=== PATIENT | female | born 1960 | race Caucasian/White ===

== ENCOUNTER → 2016-11-06 | Outpatient (CLI) | payer BC ==
[~2016-11-06] VITALS: Ht 162.6 cm; Wt 55.8 kg
[~2016-11-06] MED LIST: ALPH1CAP PO; COQ1400C2 PO; IRON65TA PO; LIDOCAINE 2% INJ 100 MG/5 ML SDV (FOR ANES.) As Ordered ONE; LUTE20CA PO; MULT1TAB10 PO; OMEG12003 PO; PROPOFOL 200 MG/20 ML VIAL As Ordered ONE; VALT1TAB PO; VITA100037 PO; VITA10005 PO; VITA500T53 PO; VITACAP35 PO; VITACRE10 EX
--- NOTE | 2016-11-06 11:22 | ROOR ---
Patient Name: Billie Erazo Procedure Date: 11/06/2016 11:10 AM Date of : 1960 Age: 56 Room: M OPP Gender: Female Note Status: Finalized Procedure: Upper GI endoscopy Indications: Heartburn, Follow-up of Simon's esophagus Providers: Devang BASSETT MD Referring MD: Brianna Robertson NP Requesting Provider: Medicines: Monitored Anesthesia Care Complications: No immediate complications. Procedure: Pre-Anesthesia Assessment: - The heart rate, respiratory rate, oxygen saturations, blood pressure, adequacy of pulmonary ventilation, and response to care were monitored throughout the procedure. The Endoscope was introduced through the mouth, and advanced to the second part of duodenum. The upper GI endoscopy was accomplished without difficulty. The patient tolerated the procedure well. Findings: The Z-line was variable and was found 36 cm from the incisors. This was biopsied with a cold forceps for histology. Very small (insignificant) Hiatal Hernia. The exam was otherwise without abnormality. Impression: - Z-line variable, 36 cm from the incisors. Biopsied. - Very small (insignificant) Hiatal Hernia. - The examination was otherwise normal. Recommendation: - Telephone endoscopist for pathology results in 2 weeks. - Continue present medications. Devang Bassett MD Devang BASSETT MD 11/06/2016 11:22:12 AM This report has been signed electronically. Number of Addenda: 0 Note Initiated On: 11/06/2016 11:10 AM Estimated Blood Loss: Estimated blood loss: none.
[2016-11-06 11:45] VITALS: BP 123/65
== END ==
LOC: M OPP 10:08
PROVIDERS: ATTEND Internal Medicine Gastroenterology
DX: K22.70 Barrett's esophagus without dysplasia (principal); K22.8 Other specified diseases of esophagus; K44.9 Diaphragmatic hernia without obstruction or gangrene; R12 Heartburn; Z80.3 Family history of malignant neoplasm of breast

== ENCOUNTER → 2017-03-27 | Outpatient (REF) | payer BC ==
[~2017-03-27] MED LIST changes: -LIDOCAINE 2% INJ 100 MG/5 ML SDV (FOR ANES.) As Ordered ONE; -PROPOFOL 200 MG/20 ML VIAL As Ordered ONE
== END ==
LOC: M SFHCWAGY 09:56
PROVIDERS: ATTEND Nurse Practitioner Family
DX: Z12.4 Encounter for screening for malignant neoplasm of cervix (principal); N95.2 Postmenopausal atrophic vaginitis

== ENCOUNTER → 2017-06-08 | Outpatient (REF) | payer BC ==
[~2017-06-08] MED LIST changes: -ALPH1CAP PO; +ALPH200C2 PO; -VITA100037 PO; +VITA100067 PO
[2017-06-08 11:46] LABS: BASO % 0.9 % (0.0-1.0); EOS # 0.1 K/mm3 (0.0-0.50); LARGE UNSTAINED CELL # 0.1 K/mm3 (0.0-0.4); LARGE UNSTAINED CELL % 1.8 % (0.0-4.0); LYMPH # 1.1 K/mm3 (1.5-4.5); LYMPH % 29.4 % (24.0-44.0); MEAN CORPUSCULAR HEMOGLOBIN 28.3 pg (27.0-33.0); MEAN CORPUSCULAR HGB CONC 31.8 g/dl (32.0-36.5); MEAN CORPUSCULAR VOLUME 89.1 fl (80.0-96.0); MONO # 0.3 K/mm3 (0.0-0.8); NEUTROPHILS % 56.9 % (36.0-66.0); PLATELET COUNT, AUTOMATED 169 k/mm3 (150-450); RED CELL DISTRIBUTION WIDTH 13.5 % (11.5-14.5); WHITE BLOOD COUNT 3.6 K/mm3 (4.0-10.0)
[2017-06-08 12:10] LABS: ALBUMIN 3.8 GM/DL (3.2-5.2); ALBUMIN/GLOBULIN RATIO 1.41 (1.00-1.93); ALKALINE PHOSPHATASE 60 U/L (45-117); ALT/SGPT 22 U/L (12-78); ANION GAP 8 MEQ/L (8-16); AST/SGOT 19 U/L (15-37); BILIRUBIN,TOTAL 0.7 MG/DL (0.2-1.0); BLOOD UREA NITROGEN 13 MG/DL (7-18); CALCIUM LEVEL 8.9 MG/DL (8.5-10.1); CARBON DIOXIDE LEVEL 29 MEQ/L (21-32); CHLORIDE LEVEL 108 MEQ/L (98-107); CHOLESTEROL LEVEL 201 MG/DL (<200); CREATININE FOR GFR 0.81 MG/DL (0.55-1.02); GLOMERULAR FILTRATION RATE > 60.0 (>51); GLUCOSE, FASTING 98 MG/DL (70-105); POTASSIUM SERUM 4.4 MEQ/L (3.5-5.1); SODIUM LEVEL 145 MEQ/L (136-145); TOTAL PROTEIN 6.5 GM/DL (6.4-8.2); TRIGLYCERIDES LEVEL 60 MG/DL (<150)
[2017-06-08 12:12] LABS: FOLATE > 24.0 NG/ML; VITAMIN B12 LEVEL 1142 PG/ML
== END ==
LOC: M SFHCPLAZ 07:50
PROVIDERS: ATTEND Nurse Practitioner Family
DX: I73.00 Raynaud's syndrome without gangrene (principal); Z83.3 Family history of diabetes mellitus; Z13.220 Encounter for screening for lipoid disorders

== ENCOUNTER → 2017-06-29 | Outpatient (CLI) | payer BC ==
--- NOTE | 2017-06-29 12:05 | REP ---
Clinical: Postmenopausal bleeding . Technique: Transabdominal pelvic ultrasound followed by transvaginal examination for better evaluation of the endometrium and adnexa. Findings: Bladder is unremarkable and measures 10.2 x 7.2 x 8.9 cm . Normal heterogeneous anteverted uterus measures 8.0 x 3.0 x 4.2 cm. The endometrial complex measures 2.2 mm thickness. No discrete uterine or endometrial abnormalities are appreciated. The right ovary is not visualized. Left ovary measures 3.5 x 2.5 x 3.1 cm and is dominated by a 2.8 x 2.0 x 2.7 cm complex cyst. 7 mm echogenic focus adjacent to the left ovary is nonspecific but may represent chronic calcification. Impression: 1. Normal appearance to the uterus with normal endometrial complex. 2. Right ovary not visualized. 3. 2.8 cm septated cyst in the left ovary. 7 mm echogenic focus adjacent to the left ovary is nonspecific possibly chronic calcification. Consider reevaluation in 6 weeks to evaluate for resolution.
== END ==
LOC: M WHC 10:30
PROVIDERS: ATTEND Nurse Practitioner Family
DX: N83.202 Unspecified ovarian cyst, left side (principal)

== ENCOUNTER → 2017-08-14 | Outpatient (REF) | payer BC ==
[2017-08-14 13:13] LABS: FREE T4 0.84 NG/DL (0.76-1.46)
== END ==
LOC: M SFHCPLAZ 10:16
PROVIDERS: ATTEND Nurse Practitioner Family
DX: L65.9 Nonscarring hair loss, unspecified (principal)

== ENCOUNTER → 2017-09-11 | Outpatient (CLI) | payer BC ==
[2017-09-11 10:49] LABS: BASO % 0.6 % (0.0-1.0); EOS # 0.1 10^3/uL (0.0-0.50); EOS % 1.2 % (0.0-3.0); IMMATURE GRANULOCYTE % 0.2 % (0-0); LYMPH # 1.4 10^3/uL (1.5-4.5); LYMPH % 28.2 % (24.0-44.0); MEAN CORPUSCULAR HEMOGLOBIN 27.3 pg (27.0-33.0); MEAN CORPUSCULAR HGB CONC 31.6 g/dl (32.0-36.5); MEAN CORPUSCULAR VOLUME 86.4 fl (80.0-96.0); MONO # 0.5 10^3/uL (0.0-0.8); MONO % 10.9 % (0.0-5.0); NEUTROPHILS # 2.9 10^3/uL (1.8-7.7); NEUTROPHILS % 58.9 % (36.0-66.0); PLATELET COUNT, AUTOMATED 204 10^3/uL (150-450)
[2017-09-11 11:21] LABS: ANION GAP 5 MEQ/L (8-16); BLOOD UREA NITROGEN 16 MG/DL (7-18); CARBON DIOXIDE LEVEL 32 MEQ/L (21-32); CHLORIDE LEVEL 106 MEQ/L (98-107); CREATININE FOR GFR 0.86 MG/DL (0.55-1.02); GLOMERULAR FILTRATION RATE > 60.0 (>51); GLUCOSE, FASTING 94 MG/DL (70-105); POTASSIUM SERUM 4.8 MEQ/L (3.5-5.1); SODIUM LEVEL 143 MEQ/L (136-145)
--- NOTE | 2017-09-11 21:54 | ECGEPIP ---
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
== END ==
LOC: M LAB 10:13
PROVIDERS: ATTEND Podiatrist
DX: Z01.818 Encounter for other preprocedural examination (principal); R94.31 Abnormal electrocardiogram [ECG] [EKG]

== ENCOUNTER → 2017-11-20 | Outpatient (REF) | payer BC ==
[2017-11-20 16:17] LABS: ANION GAP 3 MEQ/L (8-16); BLOOD UREA NITROGEN 16 MG/DL (7-18); CALCIUM LEVEL 9.4 MG/DL (8.5-10.1); CARBON DIOXIDE LEVEL 35 MEQ/L (21-32); CHLORIDE LEVEL 105 MEQ/L (98-107); CREATININE FOR GFR 0.85 MG/DL (0.55-1.30); GLOMERULAR FILTRATION RATE > 60.0 (>51); GLUCOSE, FASTING 85 MG/DL (70-100); POTASSIUM SERUM 4.2 MEQ/L (3.5-5.1); SODIUM LEVEL 143 MEQ/L (136-145)
[2017-11-20 16:53] LABS: BASO % 0.5 % (0.0-1.0); EOS # 0.1 10^3/uL (0.0-0.50); EOS % 1.9 % (0.0-3.0); HEMATOCRIT 43.1 % (36.0-47.0); HEMOGLOBIN 13.9 g/dl (12.0-16.0); LYMPH # 1.7 10^3/uL (1.5-4.5); LYMPH % 28.5 % (24.0-44.0); MEAN CORPUSCULAR HEMOGLOBIN 28.9 pg (27.0-33.0); MEAN CORPUSCULAR HGB CONC 32.3 g/dl (32.0-36.5); MEAN CORPUSCULAR VOLUME 89.6 fl (80.0-96.0); MONO # 0.6 10^3/uL (0.0-0.8); MONO % 9.3 % (0.0-5.0); NEUTROPHILS # 3.5 10^3/uL (1.8-7.7); NEUTROPHILS % 59.8 % (36.0-66.0); PLATELET COUNT, AUTOMATED 186 10^3/uL (150-450); RED BLOOD COUNT 4.81 10^6/uL (4.00-5.40); RED CELL DISTRIBUTION WIDTH 13.9 % (11.5-14.5); WHITE BLOOD COUNT 5.9 10^3/uL (4.0-10.0)
== END ==
LOC: M LABDRAW1 11:50
DX: Z00.00 Encounter for general adult medical examination without abnormal findings (principal)
CPT/HCPCS: 80048

== ENCOUNTER → 2017-11-30 | Day surgery (SDC) | payer BC ==
[~2017-11-30] MED LIST changes: -ALPH200C2 PO; -COQ1400C2 PO; +HYDROmorphone HCL 1 MG/ML SYRINGE (J1170) IV; -IRON65TA PO; +KETAMINE HCL 200 MG/20 ML VIAL As Ordered; +KETOROLAC 60 MG/2 ML VIAL (J1885) As Ordered; +LIDOCAINE 1% MDV 20ML VIAL SQ; +LIDOCAINE 2% INJ 100 MG/5 ML SDV (FOR ANES.) As Ordered; +LR 1,000 ML IV; -LUTE20CA PO; +METOCLOPRAMIDE INJ 10MG/2ML VIAL (J2765) As Ordered; +MIDAZOLAM INJ 2 MG/2 ML VIAL (J2250) As Ordered; -MULT1TAB10 PO; -OMEG12003 PO; +ONDANSETRON 4MG/2ML VIAL (J2405) As Ordered; +ONDANSETRON 4MG/2ML VIAL (J2405) IV; +PERCOCET 5MG/325MG TAB PO; +PROPOFOL 200 MG/20 ML VIAL As Ordered; -VALT1TAB PO; -VITA10005 PO; -VITA100067 PO; -VITA500T53 PO; -VITACAP35 PO; -VITACRE10 EX; +fentaNYL 100 MCG/2 ML INJECTION (J3010) As Ordered; +fentaNYL 100 MCG/2 ML INJECTION (J3010) IV
[2017-11-30] MEDS: LR 1,000 ML IV (06:55)
[2017-11-30] MEDS: BACITRACIN PWD 50,000 UNITS VIAL As Ordered (07:41)
[2017-11-30] MEDS: LIDOCAINE 2% MDV 20 ML VIAL As Ordered (07:41)
[2017-11-30] MEDS: BUPIVACAINE HCL 0.5% 30 ML VIAL As Ordered (07:41)
[2017-11-30] MEDS: NEOSPORIN GU IRRIG 20 ML VIAL As Ordered (07:41)
[2017-11-30] MEDS: dexameTHASONE 4 MG/ML 1ML VIAL (J1100) As Ordered (08:07)
== END | disposition home or self-care (01) ==
LOC: M SDC 06:17
DX: M20.11 Hallux valgus (acquired), right foot (principal); M21.621 Bunionette of right foot; Q66.89 Other specified congenital deformities of feet; F41.9 Anxiety disorder, unspecified; Z79.899 Other long term (current) drug therapy
CPT/HCPCS: 28296

== ENCOUNTER → 2018-03-19 | Outpatient (CLI) | payer BC | LOC: M WHC 08:58 | DX: N83.202 Unspecified ovarian cyst, left side (principal) | CPT/HCPCS: 76830 ==

== ENCOUNTER → 2018-05-28 | Outpatient (REF) | payer BC ==
[2018-05-28 10:37] LABS: HEMATOCRIT 42.9 % (36.0-47.0); HEMOGLOBIN 14.4 g/dl (12.0-15.5); MEAN CORPUSCULAR HEMOGLOBIN 30.2 pg (27.0-33.0); MEAN CORPUSCULAR HGB CONC 33.6 g/dl (32.0-36.5); MEAN CORPUSCULAR VOLUME 89.9 fl (80.0-96.0); PLATELET COUNT, AUTOMATED 184 10^3/uL (150-450); RED BLOOD COUNT 4.77 10^6/uL (4.00-5.40); RED CELL DISTRIBUTION WIDTH 13.2 % (11.5-14.5); WHITE BLOOD COUNT 4.1 10^3/uL (4.0-10.0)
[2018-05-28 11:15] LABS: ALBUMIN 3.8 GM/DL (3.2-5.2); ALBUMIN/GLOBULIN RATIO 1.27 (1.00-1.93); ALKALINE PHOSPHATASE 61 U/L (45-117); ALT/SGPT 22 U/L (12-78); ANION GAP 6 MEQ/L (8-16); AST/SGOT 18 U/L (7-37); BILIRUBIN,TOTAL 1.3 MG/DL (0.2-1.0); BLOOD UREA NITROGEN 14 MG/DL (7-18); CALCIUM LEVEL 9.2 MG/DL (8.5-10.1); CARBON DIOXIDE LEVEL 32 MEQ/L (21-32); CHLORIDE LEVEL 107 MEQ/L (98-107); CHOLESTEROL LEVEL 209 MG/DL (<200); CHOLESTEROL RISK RATIO 2.824 (<5); CREATININE FOR GFR 0.79 MG/DL (0.55-1.30); GLOMERULAR FILTRATION RATE > 60.0 (>51); GLUCOSE, FASTING 96 MG/DL (70-100); HDL CHOLESTEROL 74 MG/DL (>40); LDL CHOLESTEROL 114.6 MG/DL (<100); NON-HDL-C 135 MG/DL; POTASSIUM SERUM 4.2 MEQ/L (3.5-5.1); SODIUM LEVEL 145 MEQ/L (136-145); TOTAL PROTEIN 6.8 GM/DL (6.4-8.2); TRIGLYCERIDES LEVEL 102 MG/DL (<150)
== END ==
LOC: M SFHCPLAZ 07:38
DX: I73.00 Raynaud's syndrome without gangrene (principal); Z13.220 Encounter for screening for lipoid disorders
CPT/HCPCS: 80053

== ENCOUNTER → 2018-06-11 | Outpatient (REF) | payer BC | LOC: M LAB REF 15:23 | DX: L08.9 Local infection of the skin and subcutaneous tissue, unspecified (principal) ==

== ENCOUNTER → 2018-08-27 | Outpatient (CLI) | payer BC ==
[~2018-08-27] MED LIST changes: -HYDROmorphone HCL 1 MG/ML SYRINGE (J1170) IV; -KETAMINE HCL 200 MG/20 ML VIAL As Ordered; -KETOROLAC 60 MG/2 ML VIAL (J1885) As Ordered; -LIDOCAINE 1% MDV 20ML VIAL SQ; -LIDOCAINE 2% INJ 100 MG/5 ML SDV (FOR ANES.) As Ordered; -LR 1,000 ML IV; -METOCLOPRAMIDE INJ 10MG/2ML VIAL (J2765) As Ordered; -MIDAZOLAM INJ 2 MG/2 ML VIAL (J2250) As Ordered; -ONDANSETRON 4MG/2ML VIAL (J2405) As Ordered; -ONDANSETRON 4MG/2ML VIAL (J2405) IV; -PERCOCET 5MG/325MG TAB PO; +PROHANCE 279.3MG/ML 15ML VIAL (A9576) As Ordered; -PROPOFOL 200 MG/20 ML VIAL As Ordered; -fentaNYL 100 MCG/2 ML INJECTION (J3010) As Ordered; -fentaNYL 100 MCG/2 ML INJECTION (J3010) IV
== END ==
LOC: M RAD 12:24
DX: J34.89 Other specified disorders of nose and nasal sinuses (principal)
CPT/HCPCS: A9576

== ENCOUNTER → 2019-03-20 | Outpatient (CLI) | payer BC ==
[~2019-03-20] MED LIST changes: +ALPH200C2 PO; +BIOT1CAP2 PO; +CALTCHW PO; +COQ1400C2 PO; +ESCI10TA2; +IRON65TA PO; +LUTE20CA PO; +MULT1TAB10 PO; +OMEG12003 PO; -PROHANCE 279.3MG/ML 15ML VIAL (A9576) As Ordered; +VALT1TAB PO; +VITA10005 PO; +VITA100067 PO; +VITA100T77 PO; +VITA500T PO; +VITA500T17 PO; +VITACAP35 PO; +VITACRE10 EX
--- NOTE | 2019-03-20 13:39 | REP ---
Clinical: Ovarian cyst. Pelvic pain . Technique: Transabdominal pelvic ultrasound followed by transvaginal examination for better evaluation of the endometrium and adnexa. Comparison: 03/19/2018 Findings: Bladder is unremarkable and measures 9.8 x 5.9 x 8.6 cm . Normal anteverted uterus measures 7.5 x 2.5 x 3.8 cm . The endometrial complex measures 5.5 mm thickness. No discrete uterine or endometrial abnormalities are appreciated. Right ovary is normal and measures 1.9 x 0.7 x 1.4 cm. Left ovary measures 3.3 x 3.5 x 3.9 cm with 3.3 cm simple cyst. No pelvic fluid or adnexal mass lesion . Impression: 1. Normal uterus and right ovary. 2. Left ovary includes 3.3 cm simple cyst similar to finding on prior examination of 03/08.
== END ==
LOC: M WHC 10:34
PROVIDERS: ATTEND Nurse Practitioner Family
DX: N83.202 Unspecified ovarian cyst, left side (principal)

== ENCOUNTER → 2019-03-28 | Outpatient (REF) | payer BC ==
[2019-04-02 14:09] LABS: HPV HYBRID CAPTURE II Positive (Negative)
== END ==
LOC: M SFHCWAGY 09:40
PROVIDERS: ATTEND Nurse Practitioner Family
DX: Z12.4 Encounter for screening for malignant neoplasm of cervix (principal); N95.2 Postmenopausal atrophic vaginitis
CPT/HCPCS: 87624; G0123

== ENCOUNTER → 2019-04-11 | Outpatient (CLI) | payer BC ==
--- NOTE | 2019-04-11 10:02 | REP ---
LUMBAR SPINE SERIES: FIVE VIEWS. HISTORY: Sciatica. Right-sided low back pain. No comparison imaging. FINDINGS: There is a mild dextroconvex curve in the lower thoracic spine, and minimal levoconvex lumbar curve is seen. Lumbar vertebral body heights are preserved. There is a grade 1, 5 mm retrolisthesis at L2-3. Degenerative disc narrowing is seen at the L2-3, L3-4, and L4-5 disc levels with osteophyte formation. There is mild osteoarthritic facet hypertrophy and sclerosis bilaterally at L4-5 and L5-S1. There is no evidence of spondylolysis. Psoas margins are symmetric. The visualized portions of the sacrum and SI joints are unremarkable. IMPRESSION: Mild scoliotic curvature. Degenerative spondylosis changes L3-4, L4-5, and L2-3. Retrolisthesis 5 mm at L2-3. No acute bony abnormality. Electronically Signed by Jed Espinoza MD 04/11/2019 10:28 A
== END ==
LOC: M WUC 08:46
PROVIDERS: ATTEND Physician Assistant
DX: M54.31 Sciatica, right side (principal); M47.896 Other spondylosis, lumbar region; M25.78 Osteophyte, vertebrae

== ENCOUNTER 2019-04-21 06:41 | Emergency (ER) | payer BC ==
[~2019-04-21] VITALS: Ht 162.6 cm; Wt 58.6 kg
[2019-04-21] MEDS ORDERED: TIZA4TAB4 PO (06:50)
[2019-04-21] MEDS ORDERED: D3400CAP PO (07:29)
[2019-04-21] MEDS ORDERED: VITA100T59 PO (07:32)
[2019-04-21] MEDS ORDERED: VITA500T40 PO (07:38)
[2019-04-21] MEDS ORDERED: MAG100TA PO (07:38)
[2019-04-21] MEDS ORDERED: TIZA4CAP PO (07:38)
[2019-04-21] MEDS ORDERED: CALC-263 PO (07:38)
[2019-04-21] MEDS ORDERED: HAIR1CHW PO (07:38)
[2019-04-21] MEDS ORDERED: VITA50TA43 PO (07:38)
[2019-04-21] MEDS ORDERED: MEDR4PAK PO (09:22)
--- NOTE | 2019-04-21 09:23 | REP ---
MRI LUMBAR SPINE WITHOUT CONTRAST: Multiple sequences obtained in the sagittal and axial planes without the use of intravenous contrast material. There is no compression fracture or malalignment with normal lumbar lordosis. There is slight curvature of the thoracolumbar spine convex to the right with the apex of the curvature at the thoracolumbar junction. There is diffuse loss of water signal disc degeneration with mild disc space narrowing at L4-5. Conus is unremarkable. There is mild diffuse disc bulging at the T11-12 level without spinal stenosis. No significant disc bulging or herniation is seen at L1-2. At L2-3 there is mild diffuse disc bulging. There is also mild diffuse disc bulging at L3-4 and L4-5 with mild hypertrophic degenerative changes at the posterior facets and hypertrophy of the ligamentum flavum. There is no significant spinal stenosis or neural foraminal encroachment. There is minimal diffuse disc bulging at L5-S1 with moderate hypertrophic change at the posterior facets and ligamentum flavum. Again there is no significant spinal stenosis or foraminal encroachment. IMPRESSION: Mild diffuse disc bulging at L2-3, L3-4, and L4-5. Hypertrophic changes at the posterior facets and ligamentum flavum. No significant spinal stenosis or foraminal encroachment. Electronically Signed by Aram Landers MD 04/21/2019 04:21 P
[2019-04-21 09:26] VITALS: BP 137/77
== END 2019-04-21 09:32 | disposition home or self-care (01) ==
LOC: M ED 06:41
DX: M62.81 Muscle weakness (generalized) (principal); M54.31 Sciatica, right side; M51.24 Other intervertebral disc displacement, thoracic region; M51.26 Other intervertebral disc displacement, lumbar region; M51.27 Other intervertebral disc displacement, lumbosacral region; M51.36 Other intervertebral disc degeneration, lumbar region; Z79.899 Other long term (current) drug therapy

== ENCOUNTER → 2019-05-22 | Outpatient (REF) | payer BC ==
[~2019-05-22] MED LIST changes: +CALC-263 PO; +D3400CAP PO; +HAIR1CHW PO; +MAG100TA PO; +MEDR4PAK PO; +TIZA4CAP PO; +TIZA4TAB4 PO; +VITA100T59 PO; +VITA500T40 PO; +VITA50TA43 PO
[2019-05-22 10:47] LABS: HEMATOCRIT 44.1 % (36.0-47.0); HEMOGLOBIN 14.1 g/dl (12.0-15.5); MEAN CORPUSCULAR HEMOGLOBIN 30.1 pg (27.0-33.0); PLATELET COUNT, AUTOMATED 200 10^3/uL (150-450); RED BLOOD COUNT 4.69 10^6/uL (4.00-5.40); WHITE BLOOD COUNT 4.1 10^3/uL (4.0-10.0)
[2019-05-22 10:52] LABS: ALBUMIN 3.7 GM/DL (3.2-5.2); ALT/SGPT 25 U/L (12-78); BILIRUBIN,TOTAL 0.6 MG/DL (0.2-1.0); BLOOD UREA NITROGEN 12 MG/DL (7-18); CARBON DIOXIDE LEVEL 33 MEQ/L (21-32); CHLORIDE LEVEL 105 MEQ/L (98-107); CHOLESTEROL LEVEL 237 MG/DL (<200); CREATININE FOR GFR 0.95 MG/DL (0.55-1.30); GLOMERULAR FILTRATION RATE > 60.0 (>51); GLUCOSE, FASTING 77 MG/DL (70-100); HDL CHOLESTEROL 82 MG/DL (>40); LDL CHOLESTEROL 132 MG/DL (<100); NON-HDL-C 155 MG/DL; POTASSIUM SERUM 3.7 MEQ/L (3.5-5.1); SODIUM LEVEL 143 MEQ/L (136-145); TOTAL PROTEIN 6.7 GM/DL (6.4-8.2); TRIGLYCERIDES LEVEL 116 MG/DL (<150)
[2019-05-22 11:02] LABS: TOTAL 25(OH) VITAMIN D 43.8 NG/ML (30.0-100.0)
== END ==
LOC: M SFHCPLAZ 07:50
PROVIDERS: ATTEND Nurse Practitioner Family
DX: I73.00 Raynaud's syndrome without gangrene (principal); Z83.3 Family history of diabetes mellitus; Z13.220 Encounter for screening for lipoid disorders

== ENCOUNTER → 2019-08-18 | Outpatient (CLI) | payer BC ==
--- NOTE | 2019-08-18 10:06 | REP ---
Clinical: Left ovarian cyst. Technique: Transabdominal pelvic ultrasound followed by transvaginal examination for better evaluation of the endometrium and adnexa. Findings: Bladder is normal and measures 8.6 x 5.7 x 7.2 cm. Normal anteverted uterus measures 7.4 x 2.7 x 4.2 cm. Endometrial complex measures 2.6 mm thickness. Right ovary is normal and measures 1.8 x 1.2 x 1.4 cm. Left ovary measures 4.0 x 3.7 x 3.6 cm and includes 3.3 x 3.2 x 2.8 cm simple cyst essentially unchanged from prior examination. No pelvic fluid or adnexal mass lesion. Impression: Stable left ovarian cyst.
== END ==
LOC: M WHC 08:48
PROVIDERS: ATTEND Nurse Practitioner Family
DX: N83.202 Unspecified ovarian cyst, left side (principal)

== ENCOUNTER → 2019-12-18 | Outpatient (CLI) | payer BC | LOC: M PLALAB 08:38 | PROVIDERS: ATTEND Nurse Practitioner Family | DX: N83.209 Unspecified ovarian cyst, unspecified side (principal); Z80.41 Family history of malignant neoplasm of ovary ==

== ENCOUNTER → 2019-12-22 | Outpatient (CLI) | payer BC ==
[~2019-12-22] MED LIST changes: +CALTTAB6 PO; +VALT500T PO
[2019-12-22 09:49] LABS: BASO % 0.6 % (0.0-1.0); EOS # 0.1 10^3/uL (0.0-0.5); EOS % 2.3 % (0.0-3.0); HEMATOCRIT 39.3 % (36.0-47.0); HEMOGLOBIN 12.2 g/dl (12.0-15.5); LYMPH # 1.1 10^3/uL (1.5-5.0); LYMPH % 22.4 % (24.0-44.0); MEAN CORPUSCULAR HEMOGLOBIN 27.4 pg (27.0-33.0); MEAN CORPUSCULAR VOLUME 88.3 fl (80.0-96.0); MONO # 0.4 10^3/uL (0.0-0.8); MONO % 8.5 % (0.0-5.0); NEUTROPHILS # 3.2 10^3/uL (1.5-8.5); PLATELET COUNT, AUTOMATED 212 10^3/uL (150-450); RED BLOOD COUNT 4.45 10^6/uL (4.00-5.40); WHITE BLOOD COUNT 4.8 10^3/uL (4.0-10.0)
[2019-12-22 10:11] LABS: BLOOD UREA NITROGEN 20 MG/DL (7-18); CALCIUM LEVEL 9.5 MG/DL (8.5-10.1); CARBON DIOXIDE LEVEL 32 MEQ/L (21-32); CHLORIDE LEVEL 109 MEQ/L (98-107); CREATININE FOR GFR 0.82 MG/DL (0.55-1.30); GLOMERULAR FILTRATION RATE > 60.0 (>51); GLUCOSE, FASTING 90 MG/DL (70-100); POTASSIUM SERUM 4.6 MEQ/L (3.5-5.1); SODIUM LEVEL 143 MEQ/L (136-145)
--- NOTE | 2019-12-22 21:33 | ECGEPIP ---
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
== END ==
LOC: M LAB 09:05
PROVIDERS: ATTEND Podiatrist
DX: Z01.818 Encounter for other preprocedural examination (principal); M20.12 Hallux valgus (acquired), left foot; M79.672 Pain in left foot

== ENCOUNTER 2020-01-02 10:12 | Day surgery (SDC) | payer BC ==
[~2020-01-02] VITALS: Ht 162.6 cm; Wt 59.8 kg
[~2020-01-02 10:12] MED LIST changes: +BACITRACIN PWD 50,000 UNITS VIAL As Ordered ONE; +BUPIVACAINE HCL 0.5% 30 ML VIAL As Ordered ONE; +LIDOCAINE 1% MDV 20ML VIAL SQ PRN; +LIDOCAINE 2% MDV 20 ML VIAL As Ordered ONE; +LR 1,000 ML IV ONE; +NEOSPORIN GU IRRIG 20 ML VIAL As Ordered ONE; +ceFAZolin SOD 2 GM in IV 1 EA IV ONE; +dexameTHASONE 4 MG/ML 1ML VIAL (J1100) As Ordered ONE
[2020-01-02] MEDS ORDERED: fentaNYL 100 MCG/2 ML INJECTION (J3010) As Ordered ONE (12:46)
[2020-01-02] MEDS ORDERED: MIDAZOLAM INJ 2 MG/2 ML VIAL (J2250) As Ordered ONE (12:46)
[2020-01-02] MEDS ORDERED: propofoL 200 MG/20 ML VIAL As Ordered ONE (12:46)
--- NOTE | 2020-01-02 14:18 | REP ---
Left foot: Three views. History: Left foot bunionectomy. Portable exam. Findings: Three views were obtained through overlying dressing. The patient status post left first metatarsal bunion repair with a metallic pin in place. Electronically Signed by Jed Espinoza MD 01/02/2020 02:10 P
[2020-01-02 14:20] VITALS: BP 136/77
--- NOTE | 2020-01-05 10:37 | RO ---
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 PROCEDURE: Dean bunionectomy with internal screw fixation left foot SURGEON: Deny Phan DPM NEUROLOGY TECH: None. ANESTHESIA:Local MAC IRRIGATION: Dilute bacitracin, neomycin, and polymyxin B solution. HEMOSTASIS: Ankle pneumatic tourniquet at 200 mmHg for 30 minutes. HARDWARE UTILIZED: Arthrex headless compression screw. DESCRIPTION OF PROCEDURE: On 12/23/2019, this 59-year-old female was taken from her hospital room to the operating room and placed on the operating room table in a supine position. Following the induction of IV sedation and local and regional anesthesia, the left lower extremity was prepped and draped in the usual aseptic manner. Attention was directed to the patient's left foot, where there was noted to be a moderately-severe hallux valgus deformity. At this time, a 6 cm incision was placed dorsally over the first metatarsal phalangeal joint medial to the extensor tendon. The incision was deepened through subcutaneous tissues and all coursing venous tributaries were identified, underscored, clamped, cut, ligated, and electrocoagulated as necessary. A linear capsulotomy was then performed in the same plane as the original skin incision. The capsule and periosteal structures were then dissected free in one continuous layer dorsally, medially, and laterally thus creating a capsule and periosteal type envelope. This brought in to view the hypertrophied medial eminence on the first metatarsal, which was osteotomized from distal to proximal through and through exiting medial to the sesamoidal groove. Attention was then directed into the first intermetatarsal space where the conjoined tendon was sharply dissected free from the fibular sesamoid. Attention was directed to the medial surface of the first metatarsal where a V-shaped osteotomy was performed in the distal metaphysis of the first metatarsal with a long plantar and short dorsal wing. Upon creation of this osteotomy the capital fragment was transposed approximately 40% of the width of the shaft of the first metatarsal and fixated with a 3.0 x 24 mm headless compression screw. The screw did not penetrate the inferior cartilage under direct visualization. The redundant cortical spike was then osteotomized from dorsal to plantar through and through and extirpated from the wound in toto. The medial surface was rasped to a smooth contour. The wound was flushed with copious amounts of dilute bacitracin, neomycin, and polymyxin B solution. Attention was then directed towards closure, where capsular structures were coapted and maintained utilizing #2-0 Monocryl in a simple interrupted type fashion. Subcutaneous tissues were coapted and maintained utilizing #4-0 Monocryl in a simple interrupted type fashion. The skin incision was coapted and maintained utilizing #6-0 Monocryl in a continuous subcuticular type fashion and this was additionally reinforced with Steri-Strips. Following the completion of the surgical procedure, 4 mg of dexamethasone sodium phosphate was instilled proximal to the surgical site. Attention was directed towards bandaging where a sterile compressive bandage was applied consisting of Adaptic, 4 x 4's, 4 x 4 splints, Lorrie, Kerlix, and Coban. The ankle pneumatic tourniquet was rapidly deflated and instantaneous capillary filling time was noted in digits 1-5 of the patients left foot. The patient having apparently tolerated the surgical procedure well was taken from the operating room (OR) to the recovery room with further monitoring by the anesthesia department. Postoperative instructions will be given upon discharge. SHAWNA
== END 2020-01-02 14:35 | disposition home or self-care (01) ==
LOC: M SDC 10:12
PROVIDERS: ATTEND Podiatrist
DX: M20.12 Hallux valgus (acquired), left foot (principal); K21.9 Gastro-esophageal reflux disease without esophagitis; F41.9 Anxiety disorder, unspecified; A60.00 Herpesviral infection of urogenital system, unspecified; Z79.899 Other long term (current) drug therapy
CPT/HCPCS: 28296; 73630; 88300; C1713; J0690; J1100; J2250; J3010

== ENCOUNTER → 2020-03-02 | Outpatient (CLI) | payer BC ==
[~2020-03-02] MED LIST changes: -BACITRACIN PWD 50,000 UNITS VIAL As Ordered ONE; -BUPIVACAINE HCL 0.5% 30 ML VIAL As Ordered ONE; -LIDOCAINE 1% MDV 20ML VIAL SQ PRN; -LIDOCAINE 2% MDV 20 ML VIAL As Ordered ONE; -LR 1,000 ML IV ONE; -NEOSPORIN GU IRRIG 20 ML VIAL As Ordered ONE; +VITA-243 PO; -VITA500T PO; -ceFAZolin SOD 2 GM in IV 1 EA IV ONE; -dexameTHASONE 4 MG/ML 1ML VIAL (J1100) As Ordered ONE
--- NOTE | 2020-03-03 03:43 | REP ---
Clinical: Ovarian cyst . Technique: Transabdominal pelvic ultrasound followed by transvaginal examination for better evaluation of the endometrium and adnexa with color Doppler evaluation of the ovaries. Findings: Bladder is unremarkable and measures 10.6 x 6.3 x 9.0 cm . Normal retroverted uterus measures 7.7 x 2.9 x 4.0 cm . The endometrial complex measures 2 mm thickness. No discrete uterine or endometrial abnormalities are appreciated. Right ovary not identified. 3.6 x 3.2 x 3.4 cm complex cyst in the left adnexa with minimal normal left ovarian tissue noted. No pelvic fluid or adnexal mass lesion . Impression: 1. 3.6 cm complex cyst comprises much of the left ovary. Consider follow-up examination in 4-6 weeks to evaluate for resolution. 2. Right ovary not visualized on current examination.
== END ==
LOC: M WHC 08:49
PROVIDERS: ATTEND Nurse Practitioner Family
DX: N83.209 Unspecified ovarian cyst, unspecified side (principal)

== ENCOUNTER → 2020-03-26 | Outpatient (CLI) | payer BC ==
[~2020-03-26] MED LIST changes: +MULTCAP PO
== END ==
LOC: M LABSMTC 11:37
PROVIDERS: ATTEND Anesthesiology
DX: Z01.818 Encounter for other preprocedural examination (principal); Z11.59 Encounter for screening for other viral diseases
CPT/HCPCS: C9803; U0003

== ENCOUNTER 2020-03-29 10:30 | Day surgery (SDC) | payer BC ==
[~2020-03-29] VITALS: Ht 162.6 cm; Wt 61.0 kg
[~2020-03-29 10:30] MED LIST changes: +NS 1,000 ML IV SCH
[2020-03-29] MEDS ORDERED: fentaNYL 100 MCG/2 ML INJECTION (J3010) As Ordered ONE (11:01)
[2020-03-29] MEDS ORDERED: propofoL 200 MG/20 ML VIAL As Ordered ONE (11:02)
[2020-03-29] MEDS ORDERED: LIDOCAINE 2% 100MG/5ML SDV (FOR ANES.) As Ordered ONE (11:02)
--- NOTE | 2020-03-29 13:14 | ROOR ---
Patient Name: Billie Erazo Procedure Date: 03/29/2020 12:50 PM Date of : 1960 Age: 59 Room: [id number] Gender: Female Note Status: Finalized Procedure: Upper GI endoscopy Indications: Surveillance for malignancy due to personal history of Simon's esophagus Providers: Devang BASSETT MD Referring MD: Brianna Robertson NP Requesting Provider: Medicines: Monitored Anesthesia Care Complications: No immediate complications. Procedure: Pre-Anesthesia Assessment: - The heart rate, respiratory rate, oxygen saturations, blood pressure, adequacy of pulmonary ventilation, and response to care were monitored throughout the procedure. The Endoscope was introduced through the mouth, and advanced to the second part of duodenum. The upper GI endoscopy was accomplished without difficulty. The patient tolerated the procedure well. Findings: The Z-line was variable and was found 36 cm from the incisors. Biopsies were taken with a cold forceps for histology. The exam was otherwise without abnormality. Impression: - Z-line variable, 36 cm from the incisors. Biopsied. - The examination was otherwise normal. Recommendation: - Await pathology results. - Telephone endoscopist for pathology results in 2 weeks. - Repeat upper endoscopy in 3 years for surveillance. Devang Bassett MD Devang BASSETT MD 03/29/2020 1:13:55 PM Electronically signed by Devang BASSETT MD Number of Addenda: 0 Note Initiated On: 03/29/2020 12:50 PM Estimated Blood Loss: Estimated blood loss: none.
[2020-03-29 13:57] VITALS: BP 131/75
== END 2020-03-29 13:59 | disposition home or self-care (01) ==
LOC: M OPP 10:30
PROVIDERS: ATTEND Internal Medicine Gastroenterology
DX: K22.70 Barrett's esophagus without dysplasia (principal); K22.8 Other specified diseases of esophagus; Z79.899 Other long term (current) drug therapy
CPT/HCPCS: 43239; 88305; J3010

== ENCOUNTER → 2020-03-29 | Outpatient (REF) | payer BC | LOC: M SFHCWAGY 18:12 | PROVIDERS: ATTEND Nurse Practitioner Family | DX: Z12.4 Encounter for screening for malignant neoplasm of cervix (principal); Z01.419 Encounter for gynecological examination (general) (routine) without abnormal findings ==

== ENCOUNTER → 2020-05-17 | Outpatient (REF) | payer BC ==
[~2020-05-17] MED LIST changes: -NS 1,000 ML IV SCH
[2020-06-21 11:06] LABS: BLOOD UREA NITROGEN 16 MG/DL (7-18); CARBON DIOXIDE LEVEL 31 mmol/L (20-29); CHLORIDE LEVEL 110 MEQ/L (98-107); CREATININE FOR GFR 0.89 MG/DL (0.55-1.30); GLOMERULAR FILTRATION RATE > 60.0 (>51); GLUCOSE, FASTING 87 MG/DL (70-100); POTASSIUM SERUM 4.5 MEQ/L (3.5-5.1); SODIUM LEVEL 146 MEQ/L (136-145)
[2020-06-21 11:07] LABS: ALBUMIN 3.9 GM/DL (3.2-5.2); ALT/SGPT 23 IU/L (0-32); BILIRUBIN,TOTAL 0.9 MG/DL (0.2-1.0); CHOLESTEROL LEVEL 227 MG/DL (<200); CHOLESTEROL RISK RATIO 2.768 (<5); HDL CHOLESTEROL 82 MG/DL (>40); LDL CHOLESTEROL 124.8 MG/DL (<100); NON-HDL-C 145 MG/DL; TOTAL PROTEIN 6.8 GM/DL (6.4-8.2); TRIGLYCERIDES LEVEL 101 MG/DL (<150)
== END ==
LOC: M SFHCWAGY 13:49
PROVIDERS: ATTEND Nurse Practitioner Family
DX: E78.5 Hyperlipidemia, unspecified (principal); E55.9 Vitamin D deficiency, unspecified

== ENCOUNTER → 2020-08-05 | Outpatient (CLI) | payer BC ==
--- NOTE | 2020-08-05 11:24 | REP ---
INDICATION: N83.202 LEFT OVARIAN CYST COMPARISON: Comparison sonography March 02, 2020.. TECHNIQUE: Transabdominal and transvaginal scanning were performed. FINDINGS: Uterine dimensions are normal at 4.7 x 2.8 x 3.5 cm. Endometrial echo is 0.2 cm thick and centrally placed. No free fluid is seen in the cul-de-sac. Visualized bladder patterson are smooth. The right ovary was not visualized due to bowel gas. No right adnexal mass or cyst is seen. The left ovary dimensions are normal as well at 4.1 x 3.9 x 3.2 cm. It's Doppler flow was normal with resistive index of 0.65. Left ovarian cyst is again seen measuring 3.8 x 3.4 x 3.2 cm. Adjacent to this there is complex 1.2 x 0.8 x 0.8 cm cystic area on today's sonography. The larger cystic component appears simple by ultrasound criteria. IMPRESSION: 4.1 cm simple cyst left ovary. Adjacent 1.2 cm complex cyst. Right ovary not directly visualized today. Otherwise negative. <Electronically signed by Gary Espinoza > 08/05/20 [id number]
== END ==
LOC: M WHC 09:53
PROVIDERS: ATTEND Nurse Practitioner Family
DX: N83.202 Unspecified ovarian cyst, left side (principal)

== ENCOUNTER → 2020-09-20 | Outpatient (CLI) | payer BC ==
--- NOTE | 2020-09-20 10:33 | REP ---
INDICATION: N83.292 COMPLEX CYST OF LT OVARY COMPARISON: 08/05/2020 TECHNIQUE: Transabdominal pelvic ultrasound followed by transvaginal examination for better evaluation of the endometrium and adnexa. FINDINGS: Bladder is unremarkable and measures 11.7 x 6.5 x 8.0 cm. Normal retroverted uterus measures 7.5 x 2.4 x 3.8 cm. The endometrial complex measures 2 mm thickness. No discrete uterine or endometrial abnormalities are appreciated. Right ovary is not visualized. Left ovary measures 4.1 x 4.0 x 3.1 cm and includes 3.7 x 3.6 x 3.0 cm simple cyst. No pelvic fluid or adnexal mass lesion. IMPRESSION: 3.7 cm simple left ovarian cyst similar to prior examination. Previously noted complex left ovarian cyst has resolved.. <Electronically signed by Buck Payan > 09/20/20 [id number]
== END ==
LOC: M WHC 09:51
PROVIDERS: ATTEND Nurse Practitioner Family
DX: N83.292 Other ovarian cyst, left side (principal)

== ENCOUNTER → 2020-09-30 | Outpatient (REF) | payer BC | LOC: M WUC 09:49 | PROVIDERS: ATTEND Physician Assistant | DX: J02.9 Acute pharyngitis, unspecified (principal); Z20.828 Contact with and (suspected) exposure to other viral communicable diseases ==

== ENCOUNTER → 2020-12-03 | Outpatient (REF) | payer BC ==
[~2020-12-03] MED LIST changes: +ESCI10TA16; -ESCI10TA2
[2020-12-03 10:37] LABS: EOS # 0.2 10^3/uL (0.0-0.5); EOS % 5.6 % (0.0-3.0); HEMATOCRIT 43.9 % (36.0-47.0); HEMOGLOBIN 14.2 g/dl (12.0-15.5); LYMPH # 1.1 10^3/uL (1.5-5.0); LYMPH % 28.4 % (24.0-44.0); MEAN CORPUSCULAR HEMOGLOBIN 30.3 pg (27.0-33.0); MEAN CORPUSCULAR HGB CONC 32.3 g/dl (32.0-36.5); MEAN CORPUSCULAR VOLUME 93.6 fl (80.0-96.0); MONO # 0.4 10^3/uL (0.0-0.8); MONO % 11.1 % (0.0-5.0); NEUTROPHILS # 2.1 10^3/uL (1.5-8.5); NEUTROPHILS % 53.6 % (36.0-66.0); PLATELET COUNT, AUTOMATED 191 10^3/uL (150-450); RED BLOOD COUNT 4.69 10^6/uL (4.00-5.40)
[2020-12-03 11:20] LABS: BLOOD UREA NITROGEN 16 MG/DL (7-18); CALCIUM LEVEL 9.5 MG/DL (8.8-10.2); CARBON DIOXIDE LEVEL 33 MEQ/L (21-32); CHLORIDE LEVEL 106 MEQ/L (98-107); CREATININE FOR GFR 0.86 MG/DL (0.55-1.30); FREE T4 0.77 NG/DL (0.76-1.46); GLOMERULAR FILTRATION RATE > 60.0 (>45); GLUCOSE, FASTING 95 MG/DL (70-100); SODIUM LEVEL 142 MEQ/L (136-145)
== END ==
LOC: M SFHCPLAZ 08:09
PROVIDERS: ATTEND Nurse Practitioner Family
DX: J02.9 Acute pharyngitis, unspecified (principal)

== ENCOUNTER 2021-03-10 08:44 | Emergency (ER) | payer BC ==
[~2021-03-10] VITALS: Ht 162.6 cm; Wt 62.3 kg
[2021-03-10] MEDS ORDERED: LEXA5TAB13 PO (08:57)
[2021-03-10 09:55] LABS: BASO % 0.5 % (0.0-1.0); EOS # 0.1 10^3/uL (0.0-0.5); HEMATOCRIT 43.6 % (36.0-47.0); HEMOGLOBIN 13.8 g/dl (12.0-15.5); LYMPH % 27.4 % (24.0-44.0); MEAN CORPUSCULAR HEMOGLOBIN 30.3 pg (27.0-33.0); MEAN CORPUSCULAR HGB CONC 31.7 g/dl (32.0-36.5); MEAN CORPUSCULAR VOLUME 95.8 fl (80.0-96.0); MONO # 0.3 10^3/uL (0.0-0.8); MONO % 9.2 % (2.0-8.0); NEUTROPHILS # 2.2 10^3/uL (1.5-8.5); NEUTROPHILS % 59.9 % (36.0-66.0); PLATELET COUNT, AUTOMATED 208 10^3/uL (150-450); RED BLOOD COUNT 4.55 10^6/uL (4.00-5.40); WHITE BLOOD COUNT 3.7 10^3/uL (4.0-10.0)
[2021-03-10 10:11] LABS: BLOOD UREA NITROGEN 16 MG/DL (7-18); CALCIUM LEVEL 8.6 MG/DL (8.8-10.2); CARBON DIOXIDE LEVEL 30 MEQ/L (21-32); CHLORIDE LEVEL 111 MEQ/L (98-107); CK-MB VALUE MASS 1.4 NG/ML (<3.6); CPK CREATINE PHOSPHOKINASE 110 U/L (26-192); GLOMERULAR FILTRATION RATE > 60.0 (>45); GLUCOSE, FASTING 75 MG/DL (70-100); MB/CK RELATIVE INDEX 1.27 (< OR =4); POTASSIUM SERUM 4.2 MEQ/L (3.5-5.1); SODIUM LEVEL 145 MEQ/L (136-145); TROPONIN I < 0.02 NG/ML (< 0.10)
--- NOTE | 2021-03-10 10:12 | REP ---
INDICATION: TIA COMPARISON: 01/28/2016 TECHNIQUE: Portable AP view of the chest FINDINGS: The mediastinum and cardiac silhouette are stable and within normal limits for portable technique. The lung greenberg are clear without acute consolidation, effusion, or pneumothorax. Skeletal structures are intact. IMPRESSION: No acute cardiopulmonary process appreciated. <Electronically signed by Buck Payan > 03/10/21 [id number]
--- NOTE | 2021-03-10 10:19 | REP ---
INDICATION: TIA. COMPARISON: Comparison MRI orbits study August 27, 2018.. TECHNIQUE: Helical scanning is acquired. 5 mm axial images were reformatted. Coronal MPR images were generated. FINDINGS: Bone window settings demonstrate an intact bony calvarium. There is no evidence of skull fracture or incidental bony calvarial lesion. The visualized paranasal sinuses appear clear. No intraorbital abnormality is seen. On soft tissue window setting images; the lateral, third, and fourth ventricles are normal in size and position. Landers-white differentiation pattern is normal above and below the tentorium. There are is no evidence of intracranial hemorrhage. No mass, edema, infarction, or midline shift is seen. No extra-axial fluid collection is appreciated. IMPRESSION: Negative noncontrast head CT. <Electronically signed by Gary Espinoza > 03/10/21 [id number]
[2021-03-10] MEDS ORDERED: KETOROLAC 30 MG/ML 1ML VIAL IV ONE (10:25)
[2021-03-10] MEDS ORDERED: METOCLOPRAMIDE INJ 10MG/2ML VIAL (J2765 PER 1) IV ONE (10:25)
--- NOTE | 2021-03-10 13:12 | REP ---
INDICATION: LUE weakness/paraesthesia r/o TIA. COMPARISON: None. TECHNIQUE: Axial and sagittal imaging planes are utilized for T1 and T2-weighted scans. Sequences include spin-echo, fast spin echo, FLAIR, and diffusion weighted sequences. FINDINGS: No bony calvarial lesion is seen. Craniocervical junction and upper cervical cord are normal in appearance. There is no MR evidence of significant paranasal sinus disease. No intraorbital abnormality is seen. The lateral, third, and fourth ventricles are normal in size and position. Landers-white differentiation pattern is intact above and below the tentorium. There is no evidence of intracranial hemorrhage. No mass, infarction, extra-axial fluid collection or midline shift is seen. No abnormal white matter lesion is seen. IMPRESSION: Negative noncontrast brain MRI study. <Electronically signed by Gary Espinoza > 03/10/21 [id number]
--- NOTE | 2021-03-10 13:16 | REP ---
INDICATION: LUE weakness/paraesthesia r/o radiculopathy. COMPARISON: None. TECHNIQUE: Sagittal and axial T1 and T2-weighted scans are acquired in the usual fashion with and without fat saturation. Sequences include spin echo, turbo spin-echo, and STIR imaging sequences. FINDINGS: There is straightening and reversal of the normal cervical lordosis. Vertebral body heights are preserved. Alignment is otherwise normal. No bony destructive lesion is seen. No fracture or collapse is noted. Cervical cord is normal in course, caliber, and signal intensity on T1 and T2 weighted scans. Craniocervical junction is unremarkable. No extra vertebral abnormality is observed. Axial and sagittal images at C2-3 show no abnormality. At C3-4, there is mild degenerative disc narrowing and minimal diffuse disc bulging is seen. No spinal stenosis or foraminal narrowing is seen. At C4-C5, there is more advanced degenerative disc disease. There is left posterior focal disc protrusion. Posterior osteophytic ridging is seen. This effaces the ventral subarachnoid space and there is moderate left-sided neural foraminal narrowing at C4-5. There is mild right-sided neural foraminal narrowing at C4-5. At C5-6, there is disc space narrowing and desiccation. Diffuse disc bulging is seen. There is bilateral uncovertebral spurring, right more prominent than left. No cord compression is seen. At C6-C7, there is disc space narrowing posterior osteophytic ridging and diffuse disc bulging effacing the ventral subarachnoid space. Mild bilateral neural foraminal narrowing is seen. At C7-T1, there is no significant abnormality. Minimal disc bulging is noted incidentally at T2-T3. IMPRESSION: Degenerative spondylosis changes with left posterior focal disc protrusion at C4-5 and bilateral C4-5 neural foraminal narrowing. There is bilateral uncovertebral spurring and neural foraminal narrowing at the C5-6, right greater than left. Bilateral neural foraminal narrowing is seen at C6-7. <Electronically signed by Gary Espinoza > 03/10/21 [id number]
[2021-03-10 14:26] VITALS: BP 105/61
--- NOTE | 2021-03-11 20:14 | ECGEPIP ---
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
--- NOTE | 2021-03-14 11:33 | ED PDOC ---
Post-Departure Follow-Up mri c spine faxed to rolanda gallo for fu Eder Thomas MD March 14, 2021 11:33
== END 2021-03-10 14:31 | disposition home or self-care (01) ==
LOC: M ED 08:44
DX: G43.009 Migraine without aura, not intractable, without status migrainosus (principal); R00.1 Bradycardia, unspecified; M50.20 Other cervical disc displacement, unspecified cervical region; M47.812 Spondylosis without myelopathy or radiculopathy, cervical region; Z79.899 Other long term (current) drug therapy
CPT/HCPCS: 36415; 70450; 70551; 71045; 72141; 80048; 82550; 82553; 84484; 85025; 93005; 93041; 94760; 96374; 99285; J1885; J2765

== ENCOUNTER → 2021-04-05 | Outpatient (REF) | payer BC ==
[~2021-04-05] MED LIST changes: +LEXA5TAB13 PO
== END ==
LOC: M SFHCWAGY 13:22
PROVIDERS: ATTEND Nurse Practitioner Women's Health
DX: Z12.4 Encounter for screening for malignant neoplasm of cervix (principal); Z01.419 Encounter for gynecological examination (general) (routine) without abnormal findings

== ENCOUNTER → 2021-04-28 | Outpatient (CLI) | payer BC ==
[~2021-04-28] MED LIST changes: +TIZA10TA PO; -TIZA4TAB4 PO
== END ==
LOC: M WHC 09:16
PROVIDERS: ATTEND Nurse Practitioner Women's Health
DX: N83.202 Unspecified ovarian cyst, left side (principal)

== ENCOUNTER → 2021-05-20 | Outpatient (CLI) | payer BC ==
[~2021-05-20] MED LIST changes: -TIZA10TA PO; +TIZA4TAB4 PO
[2021-05-20 12:13] LABS: ALBUMIN 3.8 GM/DL (3.2-5.2); ALT/SGPT 22 U/L (12-78); BILIRUBIN,TOTAL 1.1 MG/DL (0.2-1.0); BLOOD UREA NITROGEN 16 MG/DL (7-18); CALCIUM LEVEL 9.1 MG/DL (8.8-10.2); CARBON DIOXIDE LEVEL 32 MEQ/L (21-32); CHLORIDE LEVEL 107 MEQ/L (98-107); CHOLESTEROL LEVEL 260 MG/DL (<200); CHOLESTEROL RISK RATIO 3.058 (<5); CREATININE FOR GFR 0.79 MG/DL (0.55-1.30); GLOMERULAR FILTRATION RATE > 60.0 (>45); GLUCOSE, FASTING 89 MG/DL (70-100); HDL CHOLESTEROL 85 MG/DL (>40); LDL CHOLESTEROL 156 MG/DL (<100); NON-HDL-C 175 MG/DL; POTASSIUM SERUM 4.8 MEQ/L (3.5-5.1); SODIUM LEVEL 142 MEQ/L (136-145); TOTAL PROTEIN 6.3 GM/DL (6.4-8.2); TRIGLYCERIDES LEVEL 94 MG/DL (<150)
== END ==
LOC: M PLALAB 08:24
PROVIDERS: ATTEND Nurse Practitioner Family
DX: E78.00 Pure hypercholesterolemia, unspecified (principal)

== ENCOUNTER → 2021-08-10 | Outpatient (REF) | payer BC | LOC: M PLALAB 16:21 | PROVIDERS: ATTEND Advanced Practice Midwife | DX: Z53.9 Procedure and treatment not carried out, unspecified reason (principal); N89.8 Other specified noninflammatory disorders of vagina; R10.2 Pelvic and perineal pain; N95.0 Postmenopausal bleeding ==

== ENCOUNTER → 2021-08-15 | Outpatient (CLI) | payer BC ==
[2021-08-17 14:09] LABS: HE4 53.3 pmol/L (0.0-96.5)
== END ==
LOC: M PLALAB 11:30
PROVIDERS: ATTEND Advanced Practice Midwife
DX: N83.202 Unspecified ovarian cyst, left side (principal)

== ENCOUNTER → 2022-02-23 | Outpatient (CLI) | payer BC ==
[~2022-02-23] MED LIST changes: +TIZA10TA PO; -TIZA4TAB4 PO
== END ==
LOC: M WHC 07:03
PROVIDERS: ATTEND Advanced Practice Midwife
DX: N83.202 Unspecified ovarian cyst, left side (principal)

== ENCOUNTER → 2022-03-28 | Outpatient (REF) | payer BC | LOC: M LAB REF 15:14 | PROVIDERS: ATTEND Physician Assistant | DX: J34.81 Nasal mucositis (ulcerative) (principal) ==

== ENCOUNTER → 2022-03-31 | Outpatient (CLI) | payer BC | LOC: M WUC 14:49 | PROVIDERS: ATTEND Physician Assistant | DX: M79.645 Pain in left finger(s) (principal) ==

== ENCOUNTER → 2022-04-07 | Outpatient (REF) | payer BC | LOC: M SFHCWAGY 10:12 | PROVIDERS: ATTEND Advanced Practice Midwife | DX: Z12.4 Encounter for screening for malignant neoplasm of cervix (principal); Z77.9 Other contact with and (suspected) exposures hazardous to health | CPT/HCPCS: 87624; G0123 ==

== ENCOUNTER → 2022-05-22 | Outpatient (CLI) | payer BC ==
[2022-05-22 08:38] LABS: ALBUMIN 3.4 GM/DL (3.2-5.2); ALT/SGPT 23 U/L (12-78); BILIRUBIN,TOTAL 0.8 MG/DL (0.2-1.0); BLOOD UREA NITROGEN 16 MG/DL (7-18); CALCIUM LEVEL 9.3 MG/DL (8.8-10.2); CARBON DIOXIDE LEVEL 29 MEQ/L (21-32); CHLORIDE LEVEL 112 MEQ/L (98-107); CHOLESTEROL LEVEL 228 MG/DL (<200); CHOLESTEROL RISK RATIO 2.746 (<5); GLOMERULAR FILTRATION RATE > 60.0 (>45); GLUCOSE, FASTING 94 MG/DL (70-100); HDL CHOLESTEROL 83 MG/DL (>40); LDL CHOLESTEROL 129 MG/DL (<100); NON-HDL-C 145 MG/DL; POTASSIUM SERUM 4.9 MEQ/L (3.5-5.1); SODIUM LEVEL 145 MEQ/L (136-145); TRIGLYCERIDES LEVEL 81 MG/DL (<150)
== END ==
LOC: M LAB 07:07
PROVIDERS: ATTEND Physician Assistant
DX: E78.00 Pure hypercholesterolemia, unspecified (principal)

== ENCOUNTER → 2022-06-22 | Outpatient (CLI) | payer BC ==
[~2022-06-22] MED LIST changes: +PROHANCE 279.3MG/ML 15ML VIAL As Ordered ONE
== END ==
LOC: M RAD 10:26
PROVIDERS: ATTEND Advanced Practice Midwife
DX: Z91.89 Other specified personal risk factors, not elsewhere classified (principal)
CPT/HCPCS: A9576; C8908

== ENCOUNTER → 2022-11-24 | Outpatient (CLI) | payer BC ==
[~2022-11-24] MED LIST changes: -PROHANCE 279.3MG/ML 15ML VIAL As Ordered ONE
== END ==
LOC: M WHC 07:30
PROVIDERS: ATTEND Specialist
DX: N83.292 Other ovarian cyst, left side (principal)

== ENCOUNTER → 2023-04-25 | Outpatient (REF) | payer BC ==
[~2023-04-25] MED LIST changes: +ASCO100013 PO; +CYAN500T14 PO; +OMEG10002 PO; +VITA100093 PO; +VITMTA PO
== END ==
LOC: M SFHCWAGY 17:36
PROVIDERS: ATTEND Nurse Practitioner Family
DX: Z01.419 Encounter for gynecological examination (general) (routine) without abnormal findings (principal); Z77.9 Other contact with and (suspected) exposures hazardous to health
CPT/HCPCS: 87624; G0123

== ENCOUNTER 2023-05-01 11:58 | Day surgery (SDC) | payer BC ==
[~2023-05-01] VITALS: Ht 162.6 cm; Wt 58.7 kg
[~2023-05-01 11:58] MED LIST changes: +NS 1,000 ML IV ONE
[2023-05-01] MEDS ORDERED: propofoL 200 MG/20 ML VIAL As Ordered ONE (13:53)
[2023-05-01] MEDS ORDERED: fentaNYL 100 MCG/2 ML INJECTION As Ordered ONE (13:53)
[2023-05-01] MEDS ORDERED: LIDOCAINE 2% 100MG/5ML SDV (FOR ANES.) As Ordered ONE (13:53)
[2023-05-01] MEDS ORDERED: propofoL 500 MG/50 ML VIAL As Ordered ONE (13:53)
[2023-05-01] MEDS ORDERED: ePHEDrine SULFATE 25 MG/5 ML(5MG/ML) SYRINGE As Ordered ONE (14:21)
[2023-05-01 14:26] VITALS: TEMP 98.2
[2023-05-01 14:49] VITALS: BP 147/81; O2SAT 98
== END 2023-05-01 14:51 | disposition home or self-care (01) ==
LOC: M OPP 11:58
PROVIDERS: ATTEND Internal Medicine Gastroenterology
DX: Z12.11 Encounter for screening for malignant neoplasm of colon (principal); Z80.0 Family history of malignant neoplasm of digestive organs; K64.8 Other hemorrhoids; K22.70 Barrett's esophagus without dysplasia; K22.89 Other specified disease of esophagus
CPT/HCPCS: 43239; 45378; 88305; J3010

== ENCOUNTER → 2023-05-28 | Outpatient (CLI) | payer BC ==
[~2023-05-28] MED LIST changes: -NS 1,000 ML IV ONE
[2023-05-28 10:59] LABS: BASO # 0.1 10^3/uL (0.0-0.2); BASO % 1.4 % (0.0-1.0); EOS # 0.2 10^3/uL (0.0-0.5); EOS % 4.5 % (0.0-3.0); LYMPH # 1.2 10^3/uL (1.5-5.0); LYMPH % 33.7 % (24.0-44.0); MEAN CORPUSCULAR HGB CONC 31.8 g/dl (32.0-36.5); MEAN CORPUSCULAR VOLUME 91.3 fl (80.0-96.0); MONO # 0.4 10^3/uL (0.0-0.8); MONO % 10.6 % (2.0-8.0); NEUTROPHILS # 1.8 10^3/uL (1.5-8.5); NEUTROPHILS % 49.5 % (36.0-66.0); PLATELET COUNT, AUTOMATED 201 10^3/uL (150-450); RED BLOOD COUNT 4.82 10^6/uL (4.00-5.40); WHITE BLOOD COUNT 3.6 10^3/uL (4.0-10.0)
[2023-05-28 11:15] LABS: HEMOGLOBIN A1c 5.4 % (4.0-6.0)
[2023-05-28 11:24] LABS: ALBUMIN 3.6 G/DL (3.2-5.2); ALKALINE PHOSPHATASE 61 U/L (46-116); ALT/SGPT 17 U/L (7.0-40); AST/SGOT 14 U/L (<34); BILIRUBIN,TOTAL 0.7 MG/DL (0.3-1.2); BLOOD UREA NITROGEN 15 MG/DL (9-23); CALCIUM LEVEL 9.5 MG/DL (8.3-10.6); CARBON DIOXIDE LEVEL 32 MMOL/L (20-31); CHLORIDE LEVEL 108 MMOL/L (98-107); CHOLESTEROL LEVEL 220 MG/DL (<200); CHOLESTEROL RISK RATIO 2.86 (<5); CREATININE FOR GFR 0.81 MG/DL (0.55-1.30); GLOMERULAR FILTRATION RATE > 60.0 (>45); GLUCOSE, FASTING 89 MG/DL (74-106); HDL CHOLESTEROL 76.7 MG/DL (>40); LDL CHOLESTEROL 127.5 MG/DL (<100); NON-HDL-C 143.3 MG/DL; POTASSIUM SERUM 4.7 MMOL/L (3.5-5.1); SODIUM LEVEL 141 MMOL/L (136-145); THYROID STIMULATING HORMONE 1.109 uIU/ML (0.55-4.78); TOTAL PROTEIN 6.2 G/DL (5.7-8.2); TRIGLYCERIDES LEVEL 79 MG/DL (<150)
== END ==
LOC: M PLALAB 07:25
PROVIDERS: ATTEND Physician Assistant
DX: Z00.00 Encounter for general adult medical examination without abnormal findings (principal); E78.00 Pure hypercholesterolemia, unspecified; Z83.3 Family history of diabetes mellitus

== ENCOUNTER → 2024-02-20 | Outpatient (CLI) | payer BC | LOC: M WHC 06:48 | PROVIDERS: ATTEND Nurse Practitioner Family | DX: N83.202 Unspecified ovarian cyst, left side (principal) ==

== ENCOUNTER → 2024-03-07 | Outpatient (REF) | payer BC ==
[2024-03-07 18:03] LABS: BASO % 0.7 % (0.0-1.0); EOS # 0.2 10^3/uL (0.0-0.5); EOS % 3.3 % (0.0-3.0); HEMATOCRIT 39.7 % (36.0-47.0); HEMOGLOBIN 12.5 g/dl (12.0-15.5); LYMPH # 1.7 10^3/uL (1.5-5.0); LYMPH % 28.7 % (24.0-44.0); MEAN CORPUSCULAR HEMOGLOBIN 29.2 pg (27.0-33.0); MEAN CORPUSCULAR HGB CONC 31.5 g/dl (32.0-36.5); MEAN CORPUSCULAR VOLUME 92.8 fl (80.0-96.0); MONO # 0.6 10^3/uL (0.0-0.8); MONO % 10.3 % (2.0-8.0); NEUTROPHILS # 3.3 10^3/uL (1.5-8.5); NEUTROPHILS % 56.7 % (36.0-66.0); PLATELET COUNT, AUTOMATED 212 10^3/uL (150-450); RED BLOOD COUNT 4.28 10^6/uL (4.00-5.40); WHITE BLOOD COUNT 5.8 10^3/uL (4.0-10.0)
[2024-03-07 18:39] LABS: BLOOD UREA NITROGEN 18 MG/DL (9-23); CALCIUM LEVEL 9.5 MG/DL (8.3-10.6); CARBON DIOXIDE LEVEL 29 MMOL/L (20-31); CHLORIDE LEVEL 107 MMOL/L (98-107); CREATININE FOR GFR 0.89 MG/DL (0.55-1.30); GLOMERULAR FILTRATION RATE > 60.0 (>45); GLUCOSE, FASTING 92 MG/DL (74-106); MAGNESIUM LEVEL 2.4 MG/DL (1.8-2.4); POTASSIUM SERUM 4.7 MMOL/L (3.5-5.1); SODIUM LEVEL 141 MMOL/L (136-145)
[2024-03-07 18:41] LABS: FREE T4 0.87 NG/DL (0.89-1.76); THYROID STIMULATING HORMONE 1.312 uIU/ML (0.55-4.78)
== END ==
LOC: M SFHCADAM 14:58
PROVIDERS: ATTEND Physician Assistant
DX: R00.1 Bradycardia, unspecified (principal)

== ENCOUNTER → 2024-03-20 | Outpatient (CLI) | payer BC | LOC: M PLAIMG 11:47 | PROVIDERS: ATTEND Physician Assistant | DX: R00.1 Bradycardia, unspecified (principal) ==

== ENCOUNTER → 2024-04-30 | Outpatient (REF) | payer BC ==
[2024-05-02 17:48] LABS: HPV APTIMA Detected (Not Detected)
== END ==
LOC: M SFHCWAGY 17:19
PROVIDERS: ATTEND Nurse Practitioner Family
DX: Z12.4 Encounter for screening for malignant neoplasm of cervix (principal)

== ENCOUNTER → 2024-05-29 | Outpatient (REF) | payer BC ==
[2024-05-29 17:45] LABS: BASO # 0.1 10^3/uL (0.0-0.2); BASO % 0.9 % (0.0-1.0); EOS # 0.1 10^3/uL (0.0-0.5); EOS % 1.9 % (0.0-3.0); HEMOGLOBIN 13.5 g/dl (12.0-15.5); LYMPH # 1.1 10^3/uL (1.5-5.0); LYMPH % 18.8 % (24.0-44.0); MEAN CORPUSCULAR HEMOGLOBIN 28.7 pg (27.0-33.0); MEAN CORPUSCULAR HGB CONC 31.4 g/dl (32.0-36.5); MEAN CORPUSCULAR VOLUME 91.3 fl (80.0-96.0); MONO # 0.6 10^3/uL (0.0-0.8); MONO % 10.4 % (2.0-8.0); NEUTROPHILS # 3.9 10^3/uL (1.5-8.5); NEUTROPHILS % 67.8 % (36.0-66.0); PLATELET COUNT, AUTOMATED 178 10^3/uL (150-450); RED BLOOD COUNT 4.71 10^6/uL (4.00-5.40); WHITE BLOOD COUNT 5.8 10^3/uL (4.0-10.0)
[2024-05-29 18:11] LABS: CHOLESTEROL RISK RATIO 3.18 (<5); HDL CHOLESTEROL 70.6 MG/DL (>40); LDL CHOLESTEROL 137.2 MG/DL (<100); NON-HDL-C 154.4 MG/DL
== END ==
LOC: M SFHCCLAY 09:39
PROVIDERS: ATTEND Physician Assistant
DX: E78.00 Pure hypercholesterolemia, unspecified (principal)

== ENCOUNTER → 2024-07-08 | Outpatient (CLI) | payer BC | LOC: M PLALAB 11:26 | PROVIDERS: ATTEND Internal Medicine Cardiovascular Disease | DX: R00.1 Bradycardia, unspecified (principal) ==

== ENCOUNTER 2024-08-01 10:26 | Emergency (ER) | payer BC ==
[~2024-08-01] VITALS: Ht 162.6 cm; Wt 62.9 kg
[2024-08-01 11:24] LABS: BASO % 0.7 % (0.0-1.0); EOS # 0.1 10^3/uL (0.0-0.5); EOS % 2.1 % (0.0-3.0); HEMATOCRIT 43.5 % (36.0-47.0); HEMOGLOBIN 14.2 g/dl (12.0-15.5); LYMPH # 1.4 10^3/uL (1.5-5.0); LYMPH % 32.6 % (24.0-44.0); MEAN CORPUSCULAR HEMOGLOBIN 30.5 pg (27.0-33.0); MEAN CORPUSCULAR HGB CONC 32.6 g/dl (32.0-36.5); MEAN CORPUSCULAR VOLUME 93.3 fl (80.0-96.0); MONO # 0.5 10^3/uL (0.0-0.8); MONO % 10.8 % (2.0-8.0); NEUTROPHILS # 2.3 10^3/uL (1.5-8.5); NEUTROPHILS % 53.6 % (36.0-66.0); PLATELET COUNT, AUTOMATED 184 10^3/uL (150-450); RED BLOOD COUNT 4.66 10^6/uL (4.00-5.40); WHITE BLOOD COUNT 4.4 10^3/uL (4.0-10.0)
[2024-08-01 11:37] LABS: INR 0.96; PROTHROMBIN TIME 12.5 SECONDS (12.5-14.5)
[2024-08-01 11:46] LABS: CK-MB VALUE MASS 1.1 NG/ML (<3.6); LIPASE 47 U/L (12-53)
[2024-08-01 11:47] LABS: CPK CREATINE PHOSPHOKINASE 112 U/L (34-145); MB/CK RELATIVE INDEX 0.98 (< OR =4)
[2024-08-01 11:48] LABS: ALBUMIN 3.9 G/DL (3.2-5.2); ALKALINE PHOSPHATASE 67 U/L (46-116); ALT/SGPT 20 U/L (7.0-40); AST/SGOT 17 U/L (<34); BILIRUBIN,DIRECT 0.2 MG/DL (<0.4); BLOOD UREA NITROGEN 17 MG/DL (9-23); CALCIUM LEVEL 10.2 MG/DL (8.3-10.6); CARBON DIOXIDE LEVEL 32 MMOL/L (20-31); CHLORIDE LEVEL 106 MMOL/L (98-107); CREATININE FOR GFR 0.84 MG/DL (0.55-1.30); GLOMERULAR FILTRATION RATE > 60.0 (>45); GLUCOSE, FASTING 80 MG/DL (74-106); SODIUM LEVEL 143 MMOL/L (136-145); TOTAL PROTEIN 6.8 G/DL (5.7-8.2)
[2024-08-01 12:14] LABS: MAGNESIUM LEVEL 2.1 MG/DL (1.8-2.4)
[2024-08-01 12:18] LABS: THYROID STIMULATING HORMONE 1.443 uIU/ML (0.55-4.78)
[2024-08-01] MEDS ORDERED: ISOVUE-370 76% 100ML VIAL As Ordered ONE (14:06)
[2024-08-01 16:25] VITALS: BP 122/61; TEMP 98; O2SAT 97
== END 2024-08-01 16:27 | disposition home or self-care (01) ==
LOC: M ED 10:26
DX: R07.9 Chest pain, unspecified (principal); I49.2 Junctional premature depolarization; I49.8 Other specified cardiac arrhythmias; R00.1 Bradycardia, unspecified; E78.5 Hyperlipidemia, unspecified; F41.9 Anxiety disorder, unspecified; F10.10 Alcohol abuse, uncomplicated; Z79.899 Other long term (current) drug therapy
CPT/HCPCS: 36415; 71045; 71275; 80048; 80076; 82550; 82553; 83690; 83735; 84443; 84484; 85025; 85610; 93005; 93041; 94760; 99284; Q9967

== ENCOUNTER → 2024-08-12 | Outpatient (CLI) | payer BC ==
[2024-08-12 14:47] LABS: FREE T4 1.09 NG/DL (0.89-1.76); THYROID STIMULATING HORMONE 1.546 uIU/ML (0.55-4.78)
== END ==
LOC: M PLALAB 09:00
PROVIDERS: ATTEND Physician Assistant
DX: R00.1 Bradycardia, unspecified (principal)

== ENCOUNTER → 2024-08-22 | Outpatient (CLI) | payer BC | LOC: M RAD 09:44 | PROVIDERS: ATTEND Internal Medicine Cardiovascular Disease | DX: I77.811 Abdominal aortic ectasia (principal) ==

== ENCOUNTER → 2025-02-20 | Outpatient (CLI) | payer BC | LOC: M WHC 12:47 | PROVIDERS: ATTEND Physician Assistant | DX: N83.202 Unspecified ovarian cyst, left side (principal) ==

== ENCOUNTER → 2025-02-24 | Outpatient (CLI) | payer BC ==
[2025-02-24 14:45] LABS: HEMATOCRIT 36.5 % (36.0-47.0); HEMOGLOBIN 11.2 g/dl (12.0-15.5); MEAN CORPUSCULAR HEMOGLOBIN 27.7 pg (27.0-33.0); MEAN CORPUSCULAR HGB CONC 30.7 g/dl (32.0-36.5); MEAN CORPUSCULAR VOLUME 90.3 fl (80.0-96.0); PLATELET COUNT, AUTOMATED 194 10^3/uL (150-450); RED BLOOD COUNT 4.04 10^6/uL (4.00-5.40)
[2025-02-24 15:12] LABS: CREATININE FOR GFR 0.84 MG/DL (0.55-1.30); GLOMERULAR FILTRATION RATE 77.6 (>45); MAGNESIUM LEVEL 2.1 MG/DL (1.8-2.4); POTASSIUM SERUM 4.6 MMOL/L (3.5-5.1)
[2025-02-24 15:14] LABS: FREE T4 1.01 NG/DL (0.89-1.76); THYROID STIMULATING HORMONE 1.443 uIU/ML (0.55-4.78)
== END ==
LOC: M PLALAB 09:21
PROVIDERS: ATTEND Internal Medicine Cardiovascular Disease
DX: R00.1 Bradycardia, unspecified (principal); N83.202 Unspecified ovarian cyst, left side

== ENCOUNTER → 2025-02-24 | Outpatient (CLI) | payer BC | LOC: M PLALAB 09:18 | PROVIDERS: ATTEND Physician Assistant | DX: N83.202 Unspecified ovarian cyst, left side (principal) ==

== ENCOUNTER → 2025-06-04 | Outpatient (CLI) | payer BC ==
[2025-06-04 11:27] LABS: PLATELET COUNT, AUTOMATED 202 10^3/uL (150-450)
[2025-06-04 11:34] LABS: ALT/SGPT 16.0 U/L (7.0-40); AST/SGOT 20.0 U/L (<34); CALCIUM LEVEL 9.1 MG/DL (8.3-10.6); CARBON DIOXIDE LEVEL 31.0 MMOL/L (20-31); CHLORIDE LEVEL 106.0 MMOL/L (98-107); CHOLESTEROL LEVEL 230.0 MG/DL (<200); CHOLESTEROL RISK RATIO 3.53 (<5); CREATININE FOR GFR 0.87 MG/DL (0.55-1.30); GLOMERULAR FILTRATION RATE 74.4 (>45); LDL CHOLESTEROL 146.5 MG/DL (<100); NON-HDL-C 164.9 MG/DL; POTASSIUM SERUM 5.0 MMOL/L (3.5-5.1); SODIUM LEVEL 145.0 MMOL/L (136-145); TRIGLYCERIDES LEVEL 92.0 MG/DL (<150)
[2025-06-04 11:36] LABS: FREE T4 0.96 NG/DL (0.89-1.76)
[2025-06-04 11:47] LABS: ESTIMATED AVERAGE GLUCOSE 120.0 MG/DL (60-110)
== END ==
LOC: M PLALAB 07:31
PROVIDERS: ATTEND Physician Assistant
DX: Z00.00 Encounter for general adult medical examination without abnormal findings (principal); E78.00 Pure hypercholesterolemia, unspecified; Z13.1 Encounter for screening for diabetes mellitus

== ENCOUNTER → 2025-06-10 | Outpatient (CLI) | payer BC | LOC: M ADAMS 13:43 | PROVIDERS: ATTEND Physician Assistant | DX: S90.122A Contusion of left lesser toe(s) without damage to nail, initial encounter (principal); Y92.9 Unspecified place or not applicable; Y93.9 Activity, unspecified; Y99.9 Unspecified external cause status; X58.XXXA Exposure to other specified factors, initial encounter ==

== ENCOUNTER → 2025-07-10 | Outpatient (CLI) | payer BC ==
[~2025-07-10] MED LIST changes: -VITA500T17 PO; +VITA500T8 PO
== END ==
LOC: M RAD 11:31
PROVIDERS: ATTEND Physician Assistant
DX: N83.202 Unspecified ovarian cyst, left side (principal)

== ENCOUNTER → 2025-09-04 | Outpatient (REF) | payer BC ==
[2025-09-08 14:15] LABS: HPV APTIMA Detected (Not Detected)
== END ==
LOC: M SFHCWAGY 15:34
PROVIDERS: ATTEND Obstetrics & Gynecology
DX: Z12.4 Encounter for screening for malignant neoplasm of cervix (principal); R87.610 Atypical squamous cells of undetermined significance on cytologic smear of cervix (ASC-US)
CPT/HCPCS: 87624; G0123